=== PATIENT | female | born 1955 ===

== ENCOUNTER → 2023-04-09 | Day surgery (SDC) | payer OTHER | END | disposition home or self-care (01) | LOC: ADM 03-28 13:30 → AMB-ENDOS 06:50 | PROVIDERS: ATTEND Colon & Rectal Surgery | DX: D12.2 Benign neoplasm of ascending colon (principal); D12.4 Benign neoplasm of descending colon; D12.5 Benign neoplasm of sigmoid colon; K63.5 Polyp of colon; K57.30 Diverticulosis of large intestine without perforation or abscess without bleeding ==